=== PATIENT | female | born 1990 | race Caucasian/White ===

== ENCOUNTER 2016-12-04 17:39 | Inpatient (IN) | payer OTHER ==
[~2016-12-04] VITALS: Ht 172.7 cm; Wt 68.0 kg
[2016-12-25 00:14] VITALS: BP 111/72
--- NOTE | 2016-12-25 00:15 | NUR ---
Pre Admission Assessment Pt assessed in intake office. V/S taken and WNL. Medication disposal policy explained and understood. Pt is suitable for admission. Will admit to Unit.
[2016-12-25] MEDS ORDERED: LISD40CA2 PO (00:27)
[2016-12-25] MEDS ORDERED: LORAZEPAM 1 MG TABLET PO PRN ×2 (00:30)
[2016-12-25] MEDS ORDERED: METHOCARBAMOL 750 MG TABLET PO PRN (00:30)
[2016-12-25] MEDS ORDERED: MIRALAX 17 GM POWD.PACK PO PRN (00:30)
[2016-12-25] MEDS ORDERED: ONDANSETRON ODT 4 MG TAB.RAPDIS SL PRN (00:30)
[2016-12-25] MEDS ORDERED: LORAZEPAM 2 MG/1 ML VIAL IM PRN (00:30)
[2016-12-25] MEDS ORDERED: MAGNESIUM HYDROXIDE 30 ML LIQUID UDC PO PRN (00:30)
[2016-12-25] MEDS ORDERED: CLONIDINE HCL 0.1 MG TABLET PO PRN (00:30)
[2016-12-25] MEDS ORDERED: MAG HYDROX/AL HYDROX/SIMETH 30 ML LIQUID UDC PO PRN (00:30)
[2016-12-25] MEDS ORDERED: diphenhydrAMINE 50 MG CAPSULE PO PRN (00:30)
[2016-12-25] MEDS ORDERED: BUPRENORPHINE HCL 2 MG TAB.SUBL SL PRN (00:30)
[2016-12-25] MEDS ORDERED: IBUPROFEN 400 MG TABLET PO PRN (00:30)
[2016-12-25] MEDS ORDERED: LOPERAMIDE HCL 2 MG CAPSULE PO PRN ×2 (00:30)
[2016-12-25] MEDS ORDERED: ACETAMINOPHEN 325 MG TABLET PO PRN (00:30)
[2016-12-25] MEDS ORDERED: HYDROXYZINE PAMOATE 25 MG CAPSULE PO PRN (00:30)
[2016-12-25] MEDS ORDERED: DICYCLOMINE HCL 20 MG TABLET PO PRN (00:30)
--- NOTE | 2016-12-25 00:30 | NUR ---
Admission note Pt is a 26 yo female, A+Ox4, presenting to [facility] for ETOH/Opiate/Meth/Marijuana dependence. Pt has NKA, is Full Code status, and on Regular diet. Pt is 5'8" in height and 150 LBS in weight. Pt has medical HX of ADHD. Pt has family HX of Substance abuse and Alcohol abuse fro Father. Pt has no Primary Carre provider. Pt has been drinking alcohol for 11 years, has reached a level of 750ml Vodka/Whiskey daily, and last drink was 750ml on 12-24-16 @2300. Pt has been using Heroin IV for 8 years, has reached a level of 2gm-3gm/daily, and last dose was 1gm on 12-24-16 @2300. Pt has been using Methamphetamine IV for 3 years, has reached a rate of 2gm-3gm/daily, and last dose was 1gm on 12-24-16 @2300. Pt has been smoking Marijuana for 10 years, has reached a rate of 1gm/week, and last dose was 1gm on 12-24-16 @2200. Pt is taking home medications as follows: Vyvance 40mg QD for ADHD. Pt has HX of previous Detox/Rehab " For 20 days in April 2016". This was the Pt's last time sober. Pt has been a cigarette smoker for 11 years and has reached a rate of 20/daily. Pt appears intoxicated upon admission. Pt is stable at this time with V/S WNL. No s/s of distress noted at this time. Respirations even and unlabored. Will continue to monitor.
[2016-12-25] MEDS ORDERED: BISA5TAB13 (01:29)
[2016-12-25] MEDS ORDERED: CALC100067 PO (01:29)
[2016-12-25] MEDS ORDERED: CLIN300C97 PO (01:29)
[2016-12-25 04:10] VITALS: BP 122/71
[2016-12-25] MEDS ORDERED: THIAMINE HCL 200 MG/2 ML VIAL IM ONE (06:00)
--- NOTE | 2016-12-25 07:01 | NUR ---
End of shift note Pt is a 26 yo female, A+Ox4, presenting to [facility] for ETOH/Opiate/Meth/Marijuana dependence. Pt has NKA, is Full Code status, and on Regular diet. Pt is 5'8" in height and 150 LBS in weight. Pt has medical HX of ADHD. Pt has family HX of Substance abuse and Alcohol abuse fro Father. Pt has no Primary Care provider. Pt has been drinking alcohol for 11 years, has reached a level of 750ml Vodka/Whiskey daily, and last drink was 750ml on 12-24-16 @2300. Pt has been using Heroin IV for 8 years, has reached a level of 2gm-3gm/daily, and last dose was 1gm on 12-24-16 @2300. Pt has been using Methamphetamine IV for 3 years, has reached a rate of 2gm-3gm/daily, and last dose was 1gm on 12-24-16 @2300. Pt has been smoking Marijuana for 10 years, has reached a rate of 1gm/week, and last dose was 1gm on 12-24-16 @2200. Pt is taking home medications as follows: Vyvance 40mg QD for ADHD. Pt has HX of previous Detox/Rehab " For 20 days in April 2016". This was the Pt's last time sober. Pt slept for a total of 6 HRS. last COWS: 1 and Last CIWA: 0 @0400. No s/s of distress noted at this time. Respirations even and unlabored. Will endorse to day shift nurse.
[2016-12-25 07:52] LABS: BASOPHILS # (AUTO) 0.1 K/uL (0.0-8.0); BASOPHILS % (AUTO) 1.7 % (0.0-2.0); EOSINOPHILS # (AUTO) 0.3 K/uL (0.0-0.7); EOSINOPHILS % (AUTO) 6.4 % (0.0-7.0); HEMATOCRIT 41.4 % (37-47); HEMOGLOBIN 13.5 G/DL (12.0-16.0); LYMPHOCYTES % (AUTO) 38.8 % (20.5-51.5); MEAN CORPUSCULAR HEMOGLOBIN 29.8 UUG (27.0-31.0); MEAN CORPUSCULAR HGB CONC 33 g/dL (32.0-37.0); MEAN CORPUSCULAR VOLUME 91.7 FL (81.0-99.0); MONOCYTES # (AUTO) 0.6 K/UL (0.1-1.30); MONOCYTES % (AUTO) 12.2 % (0.0-11.0); NEUTROPHILS # (AUTO) 2.3 K/UL (1.8-8.9); NEUTROPHILS % (AUTO) 40.9 % (38.5-71.5); PLATELET COUNT (AUTO) 407 K/UL (150-450); RED BLOOD CELL COUNT(AUTO) 4.52 MIL/UL (4.2-5.4); RED CELL DISTRIBUTION WIDTH 12.6 % (11.5-14.5); WHITE BLOOD COUNT (AUTO) 5.3 K/UL (4.0-11.2)
[2016-12-25 07:55] LABS: ALBUMIN 3.4 g/dL (3.4-5.0); BILIRUBIN,TOTAL 0.1 mg/dL (0.2-1.0); CALCIUM 8.6 mg/dL (8.5-10.1); CREATININE 0.9 mg/dL (0.6-1.3); POTASSIUM 3.5 mmol/L (3.5-5.1); TOTAL PROTEIN, SERUM 7.1 g/dL (6.4-8.2)
--- NOTE | 2016-12-25 07:55 | NUR ---
START OF SHIFT: RECEIVED PT ASLEEP. RESPIRATIONS EVEN AND UNLABORED. BED LOCKED AN LOW. CALL VARGAS IN REACH. WILL CONTINUE TO MONITOR.
[2016-12-25 08:00] VITALS: BP 119/75
[2016-12-25 08:04] LABS: HIV-1 p24 ANTIGEN NON REACTIVE (NONREACTIVE); HIV-1/2 ANTIBODY NON REACTIVE (NONREACTIVE)
[2016-12-25 08:28] LABS: THYROID STIMULATING HORMONE 0.983 mIU/mL (0.358-3.740)
[2016-12-25] MEDS: MULTIVITAMINS,THERAPEUTIC TABLET PO SCH (09:00)
[2016-12-25 10:06] LABS: *URINE HCG, QUAL NEGATIVE (NEGATIVE)
[2016-12-25 10:14] LABS: *AMPHETAMINE, URINE POSITIVE (NEGATIVE); *BARBITURATE, URINE NEGATIVE (NEGATIVE); *CANNABINOID, URINE NEGATIVE (NEGATIVE); *COCCAINE, URINE POSITIVE (NEGATIVE); *OPIATE, URINE POSITIVE (NEGATIVE); *PHENCYCLIDINE SCREEN,URINE NEGATIVE (NEGATIVE)
--- NOTE | 2016-12-25 10:20 | NUR ---
PT IS A/O X 4. SHE IS TEARFUL AND PRESENTS WITH IRRITABLE MOOD AND CONGRUENT AFFECT. SHE REPORTS SHE FEELS AWFUL. SHE REPORTS STOMACH CRAMPS,CHILLS,SWEATS,ANXIETY,IRRITABILITY AND RESTLESSNESS. COWS 14 CIWA 5 ADMINISTERED 4 MG SUBUTEX SL PRN AND ATIVAN 5 MG PO PRN. WILL MONITOR EFFECTIVENESS. ENCOURAGED INCREASED FLUIDS TO ASSIST IN FACILITATING DETOX PROCESS. WILL CONTINUE TO PROVIDE SAFE AND SUPPORTIVE ENVIRONMENT.
[2016-12-25] MEDS: FOLIC ACID 1 MG TABLET PO SCH (10:42)
[2016-12-25] MEDS: THIAMINE HCL 100 MG TABLET PO SCH (10:42)
--- NOTE | 2016-12-25 11:20 | NUR ---
PRN ATIVAN AND SUBUTEX EFFECTIVE. COWS 7 SNF CIWA 4. PT IS LAYING IN BED WATCHING TV.
[2016-12-25 12:00] VITALS: BP 105/60
[2016-12-25] MEDS: LORAZEPAM 1 MG TABLET PO SCH ×3 (12:41→20:25)
[2016-12-25] MEDS: BUPRENORPHINE HCL 2 MG TAB.SUBL SL SCH ×3 (12:42→20:29)
[2016-12-25] MEDS ORDERED: TUBERCULIN,PURIF.PROT.DERIV. 5 TU/0.1 ML TEST ID ONE (13:00)
[2016-12-25] MEDS: GABAPENTIN 300 MG CAPSULE PO SCH (15:00)
[2016-12-25 16:00] VITALS: BP 116/70
--- NOTE | 2016-12-25 18:39 | NUR ---
END OF SHIFT: PT STARTED SUBUTEX ATIVAN TAPER TODAY. SHE C/O BODY ACHES,CHILLS,SWEATS,RESTLESSNESS AND IRRITABILITY. PRN SUBUTEX AND ATIVAN GIVEN THIS AM PRN PRIOR TO TAPER STARTING FOR COWS 14 AND CIWA 5.. MEDS WERE EFFECTIVE. LAST COWS 9 CIWA 4. SHE IS COMPLIANT WITH INCREASING FLUIDS. SHE HAS BEEN RESTING IN BED MOST OF SHIFT. PPD PLANTED TO LFA. [facility]
[2016-12-25 20:00] VITALS: BP 118/69
--- NOTE | 2016-12-25 20:00 | NUR ---
START OF SHIFT NOTE Pt is a 26 y/o female admitted for Heroin, Meth, ETOH, and marijuana dependence and use. Pt has NKA but reported a PMH of ADHD. Per day shift nurse pt was placed on a Ativan and Subutex taper(day 1) and is tolerating medication well, with no s/e or a/r reported. Pt received Ativan 1 mg PO PRN, Subutex 4 mg PO PRN, Clonidine 0.1 mg PO PRN, and Motrin 600 mg PO PRN during the day shift. Last COW: 9 and CIWA: 6 (1600). At this time pt is asleep in bed with no signs of discomfort/distress noted. Pt is easily aroused by light touch. Pt stated " I'm okay." Pt denies any pain/discomfort at this time. Pt is encouraged to notify staff of any changes in condition or of concerns. Pt verbalized an understanding. All safety measures in place; side rails up x 2, bed locked and in low position, and call light within reach. Will continue to monitor.
[2016-12-25] MEDS ORDERED: GABAPENTIN 300 MG CAPSULE PO SCH (21:00)
[2016-12-26] VITALS: BP 121/64
[2016-12-26 04:00] VITALS: BP 118/74
--- NOTE | 2016-12-26 07:25 | NUR ---
END OF SHIFT NOTE Pt is a 26 y/o female admitted for Heroin, Meth, ETOH, and marijuana dependence and use. Pt has NKA but reported a PMH of ADHD. Pt continues on a Ativan and Subutex taper(day 2) and is tolerating medication well, with no s/e or a/r reported. Pt didn't receive any PRNS during the shift. Last COW: 1 and CIWA: 0 (0400). Pt slept for a total of 8 hours. All safety measures in place; side rails up x 2, bed locked and in low position, and call light within reach. Endorsed to the oncoming nurse.
[2016-12-26 08:00] VITALS: BP 119/73
--- NOTE | 2016-12-26 08:03 | NUR ---
START OF SHIFT: RECEIVED PT A/O X 4. SHE PRESENTS WITH GUARDED AFFECT AND ANXIOUS MOOD. SHE REPORTS ANXIETY, NAUSEA,BODY ACHES,SWEATS AND CHILLS. COWS 7 CIWA 4. SUBUTEX/ATIVAN TAPER IN PROGRESS TO MANAGE S/S OF W/D. PT STATES THE MEDS ARE EFFECTIVE. ENCOURAGED INCREASED FLUIDS TO PROMOTE WELLNESS. SAFETY PRECAUTIONS IN PLACE. WILL CONTINUE TO MONITOR AND PROVIDE SAFE AND SUPPORTIVE ENVIRONMENT.
[2016-12-26 08:06] LABS: HEPATITIS B CORE AB, IgM Negative (Negative); HEPATITIS B SURFACE AG Negative (Negative)
[2016-12-26] MEDS ORDERED: TUBERCULIN,PURIF.PROT.DERIV. 5 TU/0.1 ML TEST ID ONE (09:00)
[2016-12-26] MEDS: LORAZEPAM 1 MG TABLET PO SCH ×2 (09:18→15:00)
[2016-12-26] MEDS: THIAMINE HCL 100 MG TABLET PO SCH (09:18)
[2016-12-26] MEDS: MULTIVITAMINS,THERAPEUTIC TABLET PO SCH (09:19)
[2016-12-26] MEDS: FOLIC ACID 1 MG TABLET PO SCH (09:20)
[2016-12-26] MEDS: GABAPENTIN 300 MG CAPSULE PO SCH (09:20)
[2016-12-26] MEDS: BUPRENORPHINE HCL 2 MG TAB.SUBL SL SCH ×2 (09:21→15:00)
--- NOTE | 2016-12-26 10:25 | NUR ---
PT REPORTS NAUSEA.SHE DENIES VOMITING. PRN ZOFRAN ODT ADMINISTERED . WILL MONITOR EFFECTIVENESS.
--- NOTE | 2016-12-26 11:25 | NUR ---
PRN ZOFRAN EFFECTIVE. SHE STATES THE NAUSEA HAS SUBSIDED.
[2016-12-26 12:00] VITALS: BP 124/79
--- NOTE | 2016-12-26 13:00 | NUR ---
PT IS SAYING SHE WANTS TO LEAVE. ENCOURAGED PT TO STAY AND COMPLETE DETOX. MULTIDISCIPLINARY TEAM NOTIFIED AND INTERVENING.
--- NOTE | 2016-12-26 13:29 | NUR ---
Met with client and encouraged her to remain in detox. Client was adamant that she would not stay and that she felt fine and did not need further detoxing. Clinician was crying. No eye-contact and she did not engage with this fiction and nonfiction prose writer. Shannon SUAREZ
--- NOTE | 2016-12-26 14:10 | NUR ---
DISCHARGE AMA: SHE IS A/O X 4. SHE DENIES S/I AND H/I. STAFF MEMBERS INTERVENED AND WERE UNSUCCESSFUL IN REDIRECTING HER TO STAY AND COMPLETE DETOX.POTENTIAL CONSEQUENCES OF LEAVING AMA EXPLAINED TO PT.PT EXPRESSED VERBAL UNDERSTANDING A LIST OF RESOURCES GIVEN TO PT. BELONGINGS AND MEDS RETURNED. MADE AWARE. SHE WAS ESCORTED BY [employer] OUT OF BUILDING AT 1406.
[2016-12-26] MEDS ORDERED: GABAPENTIN 300 MG CAPSULE PO SCH (15:00)
--- NOTE | 2016-12-26 15:55 | NUR ---
Notified by administration that patient called and requested to return. Per hospital policy, bed is still on hold within the allocated 2 hour time frame. Patient's return to unit was approved by administration and medical physicist. Will assess patient upon return.
--- NOTE | 2016-12-26 16:39 | NUR ---
PRE- ASSESSMENT BP 107/76 144 97.2 18 99% PT STATES SHE DRANK 325 ML OF VODKA. SHE STATES SHE WANTS HELP.
[2016-12-26 16:40] VITALS: BP 107/76
--- NOTE | 2016-12-26 17:07 | NUR ---
MD communication Pt refused to come back up to the unit, pt left the facility with all of her belongings. Dr Macias is aware.
[2016-12-27] MEDS ORDERED: BUPRENORPHINE HCL 2 MG TAB.SUBL SL SCH ×2 (09:00→15:00)
[2016-12-27] MEDS ORDERED: LORAZEPAM 1 MG TABLET PO SCH (09:00)
[2016-12-28] MEDS ORDERED: LORAZEPAM 1 MG TABLET PO SCH (09:00)
[2016-12-28] MEDS ORDERED: BUPRENORPHINE HCL 2 MG TAB.SUBL SL SCH (09:00)
[2016-12-29] MEDS ORDERED: LORAZEPAM 1 MG TABLET PO SCH (09:00)
[2016-12-29] MEDS ORDERED: BUPRENORPHINE HCL 2 MG TAB.SUBL SL SCH (09:00)
== END 2016-12-26 14:06 | disposition left against medical advice (07) | DRG 894 ==
LOC: SRC 12-24 23:15
PROVIDERS: ADMIT Internal Medicine; ATTEND Internal Medicine
PROC: HZ2ZZZZ Detoxification Services for Substance Abuse Treatment (ICD-10-PCS; principal; 2016-12-24)
PROC: HZ41ZZZ Group Counseling for Substance Abuse Treatment, Behavioral (ICD-10-PCS; 2016-12-26)
PROC: HZ31ZZZ Individual Counseling for Substance Abuse Treatment, Behavioral (ICD-10-PCS; 2016-12-26)
DX: F11.23 Opioid dependence with withdrawal (principal); F10.239 Alcohol dependence with withdrawal, unspecified; Y90.9 Presence of alcohol in blood, level not specified; F90.9 Attention-deficit hyperactivity disorder, unspecified type; Z79.899 Other long term (current) drug therapy
CPT/HCPCS: 36415; 70030-TC; 80307; 80324; 80346; 80353; 80361; 83690; 83735; 84443; 84703; 85025; 86580; 86705; 87340; 87806; A4663; G6040-TC; Q0162; Q0163

== ENCOUNTER 2017-08-31 04:31 | Emergency (ER) | payer OTHER ==
[~2017-08-31] VITALS: Ht 172.7 cm; Wt 68.0 kg
[~2017-08-31 04:31] MED LIST: BISA5TAB13; CALC100067 PO; CLIN300C11 PO; LISD40CA PO
--- NOTE | 2017-08-31 04:43 | NUR ---
Pt c/o LUQ and upper midline pain, 8/10, and tenderness in addition to nausea w/o vomiting. Pt denies CP, SOB, dizziness, no other complaints, no distress noted.
[2017-08-31 05:00] LABS: *BILIRUBIN,URIN NEGATIVE (NEGATIVE); *BLOOD, URINE Trace-intact (NEGATIVE); *CLARITY,URINE CLOUDY (CLEAR); *COLOR,URINE YELLOW (YELLOW); *KETONES,URINE 1+ (NEGATIVE); *PROTEIN,URINE TRACE (NEGATIVE); *UROBILINOGEN,URINE 0.2 E.U./dl (NORMAL); LEUKOCYTE ESTERASE ,URINE TRACE (NEGATIVE); NITRITE, URINE NEGATIVE (NEGATIVE); UGLUCOSE NEGATIVE (NEGATIVE)
[2017-08-31 05:11] LABS: *URINE HCG, QUAL NEGATIVE (NEGATIVE); BACTERIA,URINE MANY /HPF (NONE SEEN); RBC,URINE 0-3 /HPF (0-3); SQUAMOUS EPITHELIAL CELL,UR MODERATE /HPF (NONE SEEN)
[2017-08-31 05:22] LABS: BASOPHILS % (AUTO) 0.5 % (0.0-2.0); EOSINOPHILS # (AUTO) 0.1 K/uL (0.0-0.7); EOSINOPHILS % (AUTO) 0.6 % (0.0-7.0); HEMATOCRIT 36.2 % (31.2-41.9); HEMOGLOBIN 12.6 g/dL (10.9-14.3); LYMPHOCYTES # (AUTO) 1.8 K/uL (20.0-40.0); LYMPHOCYTES % (AUTO) 17.4 % (20.5-51.5); MEAN CORPUSCULAR HGB CONC 35 g/dL (32.3-35.6); MEAN CORPUSCULAR VOLUME 88.7 fL (75.5-95.3); MONOCYTES # (AUTO) 0.8 K/uL (2.0-10.0); MONOCYTES % (AUTO) 7.7 % (0.0-11.0); NEUTROPHILS # (AUTO) 7.8 K/uL (1.8-8.9); NEUTROPHILS % (AUTO) 73.8 % (38.5-71.5); PLATELET COUNT (AUTO) 376 K/uL (179-408); RED BLOOD CELL COUNT(AUTO) 4.08 MIL/uL (3.63-4.92); WHITE BLOOD COUNT (AUTO) 10.5 K/uL (3.8-11.8)
[2017-08-31 05:36] LABS: ALANINE AMINOTRANSFERASE 15 U/L (14-59); ALKALINE PHOSPHATASE 106 U/L (50-136); ASPARTATE AMINOTRANSFERASE 27 U/L (15-37); BILIRUBIN,TOTAL 0.9 mg/dL (0.2-1.0); CARBON DIOXIDE 24 mmol/L (21-32); CHLORIDE 99 mmol/L (98-107); ETHANOL < 3 MG/DL (0-0); GLUCOSE 92 mg/dL (74-106); POTASSIUM 3.5 mmol/L (3.5-5.1); UREA NITROGEN, BLOOD 18 mg/dL (7-18)
[2017-08-31 05:36] LABS: *AMPHETAMINE, URINE POSITIVE (NEGATIVE); *BARBITURATE, URINE NEGATIVE (NEGATIVE); *CANNABINOID, URINE POSITIVE (NEGATIVE); *COCCAINE, URINE POSITIVE (NEGATIVE); *OPIATE, URINE POSITIVE (NEGATIVE); *PHENCYCLIDINE SCREEN,URINE NEGATIVE (NEGATIVE)
--- NOTE | 2017-08-31 07:09 | NUR ---
Gave pt d/c instructions, verbalized understanding.
== END 2017-08-31 07:12 | disposition home or self-care (01) ==
LOC: ER 04:35
DX: F19.20 Other psychoactive substance dependence, uncomplicated (principal); F14.10 Cocaine abuse, uncomplicated; F41.9 Anxiety disorder, unspecified; F90.9 Attention-deficit hyperactivity disorder, unspecified type; Z88.0 Allergy status to penicillin
CPT/HCPCS: 36415; 80307; 84703; 85025; A4663; G0480